=== PATIENT | female | born 1935 | race Caucasian/White ===

== ENCOUNTER 2022-11-02 15:55 | Emergency (ER) | payer MEDICARE, OTHER ==
--- NOTE | 2022-11-02 16:47 | ERPHSYRPT ---
- History of Present Illness Time Seen by Provider: 11/02/22 16:44 Source: patient Exam Limitations: no limitations Patient Subjective Stated Complaint: pt fell on a cobblestone walkway and ran into her door injuring her left forehead and her right wrist Triage Nursing Assessment: Pt brought to the ER by her daughter, hypertensive, rates pain as 6/10 in her head and wrist, denies taking blood thinners, hematoma to the left upper forehead, pain to the right wrist, denies any other injuries, denies LOC Physician History: minor fall walking, bumped forehead, no LOC, landed on right wrist, painful, no other injury Occurred: just prior to arrival Reason for Fall: tripped, fell from standing pos Injuries/Pain Location: head, upper extremity Loss of Consciousness: no loss of consciousness Severity of Pain-Max: mild Severity of Pain-Current: mild Modifying Factors: Improves With: immobilization. Worsens With: movement Associated Symptoms (Fall): extremity injury, No neck pain Allergies/Adverse Reactions: No Known Drug Allergies Allergy (Verified 11/02/22 16:35) Home Medications: Atorvastatin Calcium 40 mg PO DAILY 11/02/22 [History] Lisinopril 20 mg [Zestril 20 MG] 20 mg PO DAILY 11/02/22 [History] Trazodone HCl 50 mg [Desyrel 50 mg] 50 mg PO DAILY 11/02/22 [History] Hx Influenza Vaccination/Date Given: Yes Hx Pneumococcal Vaccination/Date Given: Yes Travel Risk - International Travel Have you traveled outside of the country in past 3 weeks: No - Coronavirus Screening Are you exhibiting any of the following symptoms?: No - Vaccine Status Have you recieved a Covid-19 vaccination: Yes Documentation Consultant: Moderna - Vaccination Dates Date of 2cond Vaccination (if applicable): 2020 - Review of Systems Constitutional: No Symptoms Eyes: No Symptoms Ears, Nose, & Throat: No Symptoms Respiratory: No Symptoms Cardiac: No Symptoms Abdominal/Gastrointestinal: No Symptoms Genitourinary Symptoms: No Symptoms Musculoskeletal: No Symptoms Skin: No Symptoms Neurological: No Symptoms Psychological: No Symptoms Hematologic/Lymphatic: No Symptoms Immunological/Allergic: No Symptoms All Other Systems: Reviewed and Negative - Past Medical History Neurological History: No Pertinent History ENT History: No Pertinent History Cardiac History: High Cholesterol, Hypertension Respiratory History: COPD Endocrine Medical History: No Pertinent History Musculoskeletal History: No Pertinent History GI Medical History: No Pertinent History History: No Pertinent History Psycho-Social History: No Pertinent History Female Reproductive Disorders: No Pertinent History - Past Surgical History Past Surgical History: Yes Gastrointestinal: Appendectomy Female Surgical History: Hysterectomy - Social History Smoking Status: Former smoker Exposure to second hand smoke: No Drug Use: none Patient Lives Alone: Yes - Nursing Vital Signs Nursing Vital Signs: Initial Vital Signs Temperature 98.2 F 11/02/22 16:14 Pulse Rate 73 11/02/22 16:14 Blood Pressure 193/81 11/02/22 16:14 O2 Sat by Pulse Oximetry 94 L 11/02/22 16:14 Pain Scale Pain Intensity 8 - [place] Coma Score Best Eye Response (Liam): (4) open spontaneously Best Verbal Response (Liam): (5) oriented Best Motor Response ([place]): (6) obeys commands [place] Total: 15 - Physical Exam General Appearance: no apparent distress Head Injury: contusions, swelling (left forehead hematoma) Eye Exam: PERRL/EOMI ENT Exam: airway nml, evidence of ENT injury Neck Exam: supple, trachea midline, full range of motion Respiratory/Chest Exam: chest tenderness, normal breath sounds Cardiovascular Exam: normal heart sounds Gastrointestinal Exam: soft, normal bowel sounds Rectal Exam: deferred Back Exam: normal inspection Extremity Exam: normal inspection, normal range of motion, tenderness, other (TTP right wrist, FROM with effort, no snuffbox pain, stable, NVI) Neurologic Exam: alert, oriented x 3, cooperative Skin Exam: normal color, warm, dry SpO2 Interpretation: normal SpO2: 94 O2 Delivery: Room Air Procedures - Splinting Location of Splint: Right, Wrist Type of Splint: Velcro Splint Splint Applied By: ED Nurse Pre-Proc Neuro Vasc Exam: normal Post-Proc Neuro Vasc Exam: neurovascular intact Progress: splint checked by , GISELEI, stable - Course Nursing assessment & vital signs reviewed: Yes - Radiology Exams Wrist X-ray Interpretation: Interpreted by me, No Fracture - CT Exams Cervical Spine CT Interpretation: Negative, Tele-radiologist Report Ordered Tests: Active Orders 24 hr Category Date Time Status Splint STAT Care 11/02/22 18:49 Completed CERVICAL SPINE WO CONTRAST [CT] Stat Exams 04/16/23 17:44 Completed HEAD WITHOUT CONTRAST [CT] Stat Exams 11/02/22 17:40 Completed WRIST (MIN 3 VIEWS) Stat Exams 11/02/22 17:40 Taken Medication Summary Discontinued Medications Generic Name Dose Route Start Last Admin Trade Name Tiffanie PRN Reason Stop Dose Admin Acetaminophen 650 mg 11/02/22 17:51 11/02/22 17:58 Acetaminophen 325 Mg Tablet PO 11/02/22 17:52 650 mg STAT STA Administration Acetaminophen Confirm 11/02/22 17:57 Acetaminophen 325 Mg Tablet Administered 11/02/22 17:58 Dose 650 mg .ROUTE .[employer] [facility] [employer] ONE - Progress Progress: improved Progress Note: 11/03/22 07:51 Forehead hematoma, no LOC or neuro changes, CT neg, left wrist sprain, no fx seen by me, rad. report pending, splinted, recheck with PCP soon. Counseled pt/family regarding: diagnosis, need for follow-up, rad results Medical Desision Making - Independent Historian Additional History obtained from: Family - Diagnostic Testing Diagnostic test were ordered, analyzed, and reviewed by me: Yes Radiological Interpretation: Interpreted by me, Teleradiologist Report - Risk of complications Minimal Risk: Minimal risk of morbidity - Departure Departure Disposition: Home Clinical Impression: Forehead contusion Qualifiers: Encounter type: initial encounter Qualified Code(s): S00.83XA - Contusion of other part of head, initial encounter Right wrist sprain Qualifiers: Encounter type: initial encounter Qualified Code(s): S63.501A - Unspecified sprain of right wrist, initial encounter Condition: Stable Critical Care Time: No Referrals: DOCTOR,NO FAMILY [Primary Care Provider] - Follow up/PCP as directed Instructions: Head Injury in Adults (DC), Wrist Sprain ED Additional Instructions: Wear wrist splint, elevate, tylenol, recheck with PCP soon. Follow head injury instructions. Recheck with PCP when home.
[2022-11-02] MEDS ORDERED: TYLENOL 325 MG PO STA (17:51)
[2022-11-02] MEDS ORDERED: TYLENOL 325 MG ONE (17:57)
[2022-11-02 18:23] VITALS: PULSE 72
--- NOTE | 2022-11-02 18:29 | XRAY ---
CLINICAL HISTORY:trauma COMPARISON:None; TECHNIQUES:Axial non-contrast CT scan of the brain was performed from the skull base to the high parietal region. CTDI: 53.92 mGy, DLP: 964.10 mGy*cm; FINDINGS: Soft tissue hematoma is seen in the left frontal region. No evidence of intracerebral or extraxial hematoma is seen. No definite calvarium fractures. There are hypodense areas noted in the periventricular white matter bilaterally, suggestive of microvascular ischemic changes. The ventricular system, cortical sulci, and basal cisterns are prominent consistent with senile changes. The visualized brain parenchyma shows normal appearance. Garcia-white matter differentiation is maintained. No midline shifts or deformity. Normal size and configuration of the cerebral ventricles. Normal CT appearance of the posterior fossa structures namely the cerebellar hemispheres, brainstem, and cerebellar peduncles. The IACs are unremarkable. The cerebello-pontine angles are clear. The pituitary gland, the pineal gland, and the optic chiasm is unremarkable. The osseous structures in the skull base are unremarkable. The scanned paranasal sinuses are clear. IMPRESSION: 1-Soft tissue extracranial hematoma in the left frontal region. 2-No evidence of intracerebral or extraxial hematoma. 3-No definite calvarium fractures. 4-White matter ischemic changes. 5-[id number] senile atrophic changes. Electronically Signed by: Alfred Chappell MD. (11/02/2022 17:22:50 EXTERNAL GRINDER TENDER)
--- NOTE | 2022-11-02 18:39 | XRAY ---
CLINICAL HISTORY:trauma COMPARISON:None; TECHNIQUES:Thin axial CT of the cervical spine was performed with sagittal and coronal reconstructions without contrast. CTDI: 23.5 mGy, DLP: 564.8 mGy*cm; FINDINGS: Straightening of cervical spine is likely due to muscle spasm. Partial fusion of C2-C3 vertebral bodies is noted. The vertebral bodies are normal in height. No lytic or sclerotic bone lesion. The craniovertebral measures are unremarkable. Osteophytes are seen along the anterolateral margin of vertebral bodies with associated facet joint arthrosis and narrowing of disc heights. Multilevel disc osteophyte complexes are seen encroaching the neural foramens. IMPRESSION: 1-Straightening of cervical spine is noted likely due to muscle spasms. 2-No evidence of fracture or dislocation. 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 Electronically Signed by: Alfred Chappell MD. (11/02/2022 17:32:35 PSYCHIATRIC AIDE INSTRUCTOR)
[2022-11-02 18:55] VITALS: O2SAT 94
[2022-11-02 19:17] VITALS: BP 184/76
--- NOTE | 2022-11-03 08:42 | XRAY ---
Indication: Status post fall. Comparison: None 3 view right wrist demonstrates osteopenia and moderate/advanced multangular scaphoid degenerative changes. No other bony, articular, or soft tissue abnormalities.
== END 2022-11-02 19:17 | disposition home or self-care (01) ==
LOC: ED 15:55
DX: S00.83XA Contusion of other part of head, initial encounter (principal); S63.501A Unspecified sprain of right wrist, initial encounter; W18.30XA Fall on same level, unspecified, initial encounter; Y93.01 Activity, walking, marching and hiking; E78.5 Hyperlipidemia, unspecified; I10 Essential (primary) hypertension; Z79.899 Other long term (current) drug therapy
CPT/HCPCS: 70450; 72125; 73110; 99283; L3908; A9270-GY